=== PATIENT | female | born 1995 | race Caucasian/White ===

== ENCOUNTER 2020-05-30 10:27 | Emergency (ER) | payer MEDICAID, SELFPAY ==
[~2020-05-30] VITALS: Ht 160 cm; Wt 59.0 kg
[2020-05-30 10:36] VITALS: BP_SYST 111
[2020-05-30 13:20] VITALS: BP_SYST 112
== END 2020-05-30 13:20 | disposition home or self-care (01) ==
LOC: SED 10:27
DX: J02.8 Acute pharyngitis due to other specified organisms (principal); B97.89 Other viral agents as the cause of diseases classified elsewhere; Z20.822 Contact with and (suspected) exposure to COVID-19
CPT/HCPCS: 36415; 99283